=== PATIENT | male | born 1950 | race Caucasian/White ===

== ENCOUNTER 2022-04-01 10:30 | Outpatient (CLI) | payer MEDICARE, OTHER ==
[~2022-04-01 10:30] MED LIST: AMLO-212 PO; ASCO500C6 PO; ASPI-605 PO; ATEN50TA PO; CARI3CAP PO; CLOZ200T PO; DONE5TAB34 PO; FISH OIL OMEGA1 EACH PO; LORA2TAB PO; LOSA25TA3 PO; MEMA5TAB PO; Olanzapine PO; PYRI50TA15 PO; QUET200T PO; TRIH2TAB4 PO
== END 2022-04-01 23:59 | disposition home or self-care (01) ==
LOC: LAB 10:30
PROVIDERS: ATTEND Specialist
DX: Z01.812 Encounter for preprocedural laboratory examination (principal); Z20.822 Contact with and (suspected) exposure to COVID-19
CPT/HCPCS: C9803; U0003

== ENCOUNTER 2022-04-08 07:09 | Inpatient (IN) | payer MEDICARE, OTHER ==
[2022-04-08 07:30] VITALS: BP 124/71
--- NOTE | 2022-04-08 07:30 | NUR ---
RN OPENING NOTE RECEIVED PT FOR RIGHT KNEE ARTHROPLASTY AT 0730 WITH FAMILY. A/0 X3. ABLE TO FOLLOW INSTRUCTIONS AND MAKE NEEDS KNOWN. PRE-OP CONSENT FORMS SIGNED, CHECKLIST COMPLETED, RN ADDRESSED QUESTIONS. IV ACCESS WILL BE PLACED IN OR. PT PICKED UP AT 0905 FOR SURGERY WITH MD ARMAAN.
[2022-04-08] MEDS ORDERED: FENTANYL PF 100MCG/2ML AMPUL ONE ×2 (08:37→13:17)
[2022-04-08] MEDS ORDERED: PROPOFOL 100 ML ONE (08:38)
[2022-04-08] MEDS ORDERED: BUPIVACAINE 0.5 % PF 150 MG/30 ML VIAL ONE (08:56)
[2022-04-08] MEDS ORDERED: POLYMYXIN B SULFATE 500,000 UNITS ONE (08:56)
[2022-04-08] MEDS ORDERED: TRANEXAMIC ACID 3,000 MG in SODIUM CHLORIDE IRRIG SOLUTION 70 ML IR ONE (09:30)
[2022-04-08] MEDS ORDERED: HYDROMORPHONE 1 MG/1 ML DISP.SYRIN IV PRN ×2 (13:30→17:30)
[2022-04-08] MEDS ORDERED: HYDROCODONE/APAP 5/325MG TABLET PO PRN (13:30)
[2022-04-08] MEDS ORDERED: ACETAMINOPHEN 325 MG TABLET PO PRN ×2 (13:30→15:30)
[2022-04-08] MEDS ORDERED: ZOLPIDEM TARTRATE 5 MG TABLET PO PRN ×2 (13:30→15:30)
[2022-04-08] MEDS ORDERED: SENNOSIDES 8.6 MG TABLET PO PRN (13:30)
[2022-04-08] MEDS ORDERED: BISACODYL SUPP (10 MG) 10 MG/SUPP.RECT SUPP.RECT RC PRN (13:30)
[2022-04-08 14:10] VITALS: BP 145/71
[2022-04-08] MEDS: IV LR 1000 ML 1,000 ML IV PRN (15:15)
--- NOTE | 2022-04-08 15:20 | NUR ---
SS Note: SS received consult for discharge planning. Pt. Is a 71-year-old male who presents to the hospital for right knee arthroplasty. Pt. was oriented x3, alert, and cooperative. During interview, pt. was capable of following directions and appeared groomed. Pt.s speech was at a normal rate and pt.s mood was elevated. Pt. reported no hx of mental health, substance abuse, suicidal ideation, or homicidal ideation. Pt. denies auditory hallucinations, visual hallucinations, paranoia, or delusions. SW explored pt.s living situation. Per pt., he lives with his daughter Nila [[id number] [facility] [place] [address], daughter: [phone]], pt. was able to confirm address. Pt. stated that he uses a cane for ambulation. Per case supervisor note, pt.'s daughter is requesting to refer pt. at [facility] for acute rehab. Plan: SW provided available resources and pt. accepted. Per case supervisor note, pt. s daughter is requesting to refer pt. at [facility] for acute rehab upon discharge. Resources Provided: ABUSE PREVENTION: ELDER ABUSE HOTLINE (08/05) ADULT PROTECTIVE SERVICES HOTLINE [facility] Region AREA ON AGING (HOTLINE) ADULT DAY HEALTH CARE CARE CENTERS: Private pay or [facility] funded adult day care [place] [facility] , [facility] Integration Services , [facility] Adult Care Center , [facility] Adult Day Health Care , [facility] Adult Day Health Care , [facility] , [facility] , [facility] Adult [place] , [place] ALZHEIMERS DISEASE/DEMENTIA: Alzheimers Association Helpline [facility] Chapter www.alz.org/[facility] Department of Aging www.lacity.org Family Caregiver Arp www.caregiver.org [place] Caregiver Resources Center/Family Support www.[facility].org CANCER RESOURCES: Italian Cancer Society www.cancer.org Cancer Support Community www.CancerSupportVvsb.org: CancerCare www.cancercare.org [facility] Cancer Support [place] www.[facility].org [facility] HEALTH ASSOCIATIONS: AARP www.aarp.org ALS Association (ask for Mari) www.als.org Italian Diabetes Association www.diabetes.org Italian Heart Association www.heart.org Italian Lung Association www.lungusa.org Italian Parkinson Disease Association www.apdaparkinson.org Italian Siren , www.redcross.org Arthritis Foundation www.arthritis.org Crohns & Colitis Foundation of Italian www.ccfa.org/chapters/di National Multiple Sclerosis Society www.nationalmssociety.org Myasthenia Gravis Foundation www.myasthenia-ca.org National Stroke Association www.stroke.org CONSERVATORSHIP & GUARDIANSHIP: AARP Megan Valerio Legal Services Center for Health Care Rights Eldercare Information and Referral Primer Press Operator Foundation [facility]: [facility] Bar Referral Service [facility] [place] Legal Services Office of the Public Guardian [place] EYESIGHT DISORDER RESOURCES: Italian Macular Degeneration Foundation [facility] www.[facility].org GRIEF AND BEREAVEMENT RESOURCES: The Gathering Place , [facility] THE HOPE Connection , [facility] , [place] HEARING DISORDER RESOURCES: [place] Telephone Access Program Deaf and Disabled Telecommunications Program www.ddtp.[facility].ca.gov HearRx Hearing Centers ([place]) Better Hearing Systems , [place] GLAD ([facility] Agency on Deafness) V/ TTY; Wardrobe Supervisor , [facility] Hearing [place] [facility] -low income hearing aid assistance www.[facility] youngstownringfoundation.org [facility] , [place] HELP AT HOME CAREGIVER SUPPORT: In Home Support Services (Must have Medi-Deshaun to be eligible) *Ask for a list of agencies that provide services to assist with care in the home. Local Senior Centers also have listings of care providers. HOME SAFETY MODIFICATIONS AND EQUIPMENT: Senior centers have additional referrals. [place] Housing and Community Investment Dept. Handyworker Program (low income) or Visit http://hcidla.grace hospitality.org/ubd-xowwyo-yw for more information National Seating and Mobility and/or ; Forever Active www.foreverWhere I've Beenmed.com Stay Home Safe www.Stayhomesafe.com LIFE ALERT RESPONSE SYSTEM: Janeen Lifeline Services 485-518-1990 www. Touchstorm.[employer] Life Alert 988-219-2292 www.lifealert.[employer] Life Station 820-614-7267 www.NeuroSigmaation.[employer] Safe Return 913-324-0037 www.alz.or/safereturn Cell Phones for Seniors www.Fannect MEALS AND FOOD PROGRAMS: [place] Meals on Wheels [phone] [place] Meals on Wheels [phone] [facility] [phone] [place] to the Homebound [phone] [place] to the Homebound [phone] [facility] to the Homebound [phone] [facility] to the Homebound [phone] [facility] [phone] [facility] [phone] ONE Generation [phone] [facility] [phone] [facility] [phone] Meals on Wheels [phone] For all ages: $6.85/ meal w side. Delivered M-F from 10 am-1pm. Application and payment is done over the phone. Frozen meals available for weekends. Emergency Food [facility] [phone] [facility] Building Code Inspector [phone] [facility] [phone] [facility]- Brown bag lunches [phone] [facility] [phone] MEAL/GROCERY DELIVERY PROGRAMS: [facility] Gourmet Meals [phone]- [facility] [phone]- [facility] Magic Kitchen [phone] Moms Meals [phone] (ask Daly for Discount Select grocery stores may provide delivery. MEDICAL INSURANCE SUPPORT SERVICES: Center for Health Care Rights [phone] Health Insurance Counseling/Advocacy Programs (HICAP)-Must have Medicare. Offers counseling for Medi-Deshaun eligibility [phone] Department of Public Building Code Inspector [phone] www.[facility].ca.gov Medicare [phone] www.socialsecurity.org Social Security [phone] SENIOR ACTIVITY PROGRAMS: *Contact a local senior center, adult school, recreation facility or community [facility] for education, fitness, recreation, and social programs. Aquatic Therapy and Adapted Exercise programs through [facility] [phone] Encore at [facility] [phone]/encore U- Senior Friends [phone] [place] Senior Programs [phone] www.oasisnet.org Suddenly 65 www.csnhufgu27.[employer]irement [employer] SENIOR CENTERS: [facility] [phone] [facility] [phone] [facility] [phone] [facility] [phone] [facility] [phone] [facility] [phone] [facility] [phone] [facility] [phone] [facility] [phone] [facility] [phone] [facility] [phone] [facility] [phone] [facility] [phone] TRANSPORTATION: Local [facility] may have applications for transportation programs and additional resources. ACCESS Services [phone] Transportation for seniors and disabled persons 7 days a week requiring 254 hr. advance reservation. Must apply and register for program dane eligible. Smarter Learn Limited RIDE 299-637-2236 or [phone] Transportation for seniors and persons with ADA card/metro disabled card in the [facility]. M-F only. Must register for services. ONE GENERATION [phone] Serves 65 years + in conjunction with city ride program. Must be registered with both programs. A to B Transport [phone] Provides wheelchair/gurney van service. Adult Medical Transport [phone] Accepts [facility] with prior authorization. Care Van [phone] Provides wheelchair Transport. [facility] Wide Transportation [phone] Provides gurney service [facility] [phone] Gurney Transport. All Town Transportation [phone] wheelchair & gurney transport GMD Transportation [phone] wheelchair & gurney transport [place] Non-Emergency Transport [phone] wheelchair & gurney transport [facility] Living [place] [phone] Short Term Transportation primarily for adults with disabilities on social security income. Nominal fee may apply and a reservation is required. [facility] [phone] or [phone] [facility] [phone] [place] [address] Referral Services -[phone] For additional programs & services VETERANS RESOURCES: Submissions for Aid and Attendance should be done directly to Federal VA office locatd at : [address] [address] X110 National Caregiver Support Line [phone] [facility] Field Office [phone] [place] Department of [place] Affairs [phone] Pension Information [phone]
[2022-04-08] MEDS ORDERED: ONDANSETRON HCL/PF 4 MG/2 ML VIAL IVP PRN (15:30)
[2022-04-08] MEDS ORDERED: Z GUARD REMEDY 4 OZ OINT TP PRN (15:30)
[2022-04-08] MEDS ORDERED: MAG HYDROX/AL HYDROX/SIMETH 30 ML UDC PO PRN (15:30)
[2022-04-08] MEDS ORDERED: MAGNESIUM HYDROXIDE 30 ML UDC PO PRN (15:30)
[2022-04-08] MEDS ORDERED: oxyCODONE IR immediate release 5 MG PO ONE (15:55)
[2022-04-08 16:00] VITALS: BP 143/77
[2022-04-08] MEDS ORDERED: MENTHOL/CETYLPYRD (CEPACOL) 1 LOZ LOZENGE PO PRN (16:00)
[2022-04-08] MEDS ORDERED: diphenhydrAMINE HCL 25 MG CAPSULE PO PRN (16:00)
[2022-04-08 16:15] LABS: BASOPHILS % (AUTO) 0.3 % (0.0-2.0); EOSINOPHILS % (AUTO) 0.1 % (0.0-6.0); HEMATOCRIT 37 % (39-51); HEMOGLOBIN 11.8 g/dL (13.5-17.5); LYMPHOCYTES # (AUTO) 1.4 K/uL (0.8-4.8); LYMPHOCYTES % (AUTO) 10.8 % (20.0-44.0); MEAN CORPUSCULAR HGB CONC 32 g/dl (31.0-36.0); MEAN CORPUSCULAR VOLUME 87 fL (80-96); MONOCYTES # (AUTO) 0.6 K/uL (0.1-1.30); MONOCYTES % (AUTO) 4.9 % (2.0-12.0); NEUTROPHILS % (AUTO) 83.9 % (43.0-81.0); PLATELET COUNT (AUTO) 227 K/uL (150-450); RED BLOOD CELL COUNT(AUTO) 4.27 MIL/uL (4.5-6.0); WHITE BLOOD COUNT (AUTO) 13.1 K/uL (4.3-11.0)
[2022-04-08 16:30] LABS: ALBUMIN 3.2 g/dL (3.4-5.0); BILIRUBIN,TOTAL 0.4 mg/dL (0.2-1.0); CREATININE 0.9 mg/dL (0.6-1.3); TOTAL PROTEIN, SERUM 7.3 g/dL (6.4-8.2)
[2022-04-08] MEDS ORDERED: DOCUSATE SODIUM 250 MG CAPSULE PO PRN (17:00)
[2022-04-08] MEDS: ASPIRIN EC 325 MG TABLET.DR PO SCH (17:01)
[2022-04-08] MEDS: DOCUSATE SODIUM 100 MG CAPSULE PO SCH (17:03)
[2022-04-08] MEDS ORDERED: CLOZAPINE PO SCH (17:30)
[2022-04-08] MEDS: PYRIDOXINE HCL 50 MG TABLET PO SCH (17:55)
--- NOTE | 2022-04-08 18:29 | NUR ---
RN OPENING NOTE RECEIVED PT FOR RIGHT KNEE ARTHROPLASTY AT 0730 WITH FAMILY. A/0 X3. ABLE TO FOLLOW INSTRUCTIONS AND MAKE NEEDS KNOWN. PRE-OP CONSENT FORMS SIGNED, CHECKLIST COMPLETED, RN ADDRESSED QUESTIONS. PT CAME BACK FROM SURGERY @ 1410, IV ACCESS @ LEFT HAND #22 RUNNING NS@ 100ML/HR. PT IS SLEEPING BUT IS EASILY ROUSED. PRN PAIN MEDICATION GIVEN, PAIN TOLERABLE AT THIS TIME. PT IS ABLE TO VERBALIZE NEEDS. DENIES SOB/DISTRESS, WILL ENDORSE TO PM SHIFT
--- NOTE | 2022-04-08 19:25 | NUR ---
RN NOTE RECEIVED PT AWAKE IN BED, A/OX3, ABLE TO MAKE NEEDS KNOWN. RESPIRATIONS EVEN/UNLABORED, ON ROOM AIR. PT DENIES ANY PAIN AT THIS TIME. IV ACCESS ON L-HAND #22G INTACT/PATENT, INFUSING LR @100ML/HR. WITH F/C IN PLACE, DRAINING CLEAR YELLOW URINE. PT IN NO ACUTE DISTRESS. SAFETY MEASURES IN PLACE, BED IN LOWEST LOCKED POSITION, S/R UPX2, CALL LIGHT WITHIN REACH. WILL CONT TO MONITOR.
[2022-04-08] MEDS: ANCEF 1 GM/50 ML D5W IV SCH ×2 (19:57)
[2022-04-08 20:11] VITALS: BP 137/80
[2022-04-08] MEDS: DONEPEZIL 5 MG TABLET PO SCH (21:31)
[2022-04-08] MEDS: CLOZAPINE 100 MG TABLET PO SCH (22:00)
[2022-04-09] MEDS: IV LR 1000 ML 1,000 ML IV PRN (02:32)
[2022-04-09] MEDS: oxyCODONE IR immediate release 5 MG PO PRN ×2 (02:35→22:12)
[2022-04-09] MEDS: ANCEF 1 GM/50 ML D5W IV SCH ×2 (03:42)
[2022-04-09 06:29] LABS: BASOPHILS % (AUTO) 0.3 % (0.0-2.0); EOSINOPHILS % (AUTO) 0.1 % (0.0-6.0); HEMATOCRIT 35 % (39-51); HEMOGLOBIN 11.5 g/dL (13.5-17.5); LYMPHOCYTES # (AUTO) 1.4 K/uL (0.8-4.8); LYMPHOCYTES % (AUTO) 13.4 % (20.0-44.0); MEAN CORPUSCULAR HGB CONC 33 g/dl (31.0-36.0); MEAN CORPUSCULAR VOLUME 86 fL (80-96); MONOCYTES % (AUTO) 10.1 % (2.0-12.0); NEUTROPHILS # (AUTO) 7.8 K/uL (1.8-8.9); NEUTROPHILS % (AUTO) 76.1 % (43.0-81.0); PLATELET COUNT (AUTO) 213 K/uL (150-450); RED BLOOD CELL COUNT(AUTO) 4.08 MIL/uL (4.5-6.0); WHITE BLOOD COUNT (AUTO) 10.3 K/uL (4.3-11.0)
[2022-04-09 06:43] LABS: CALCIUM, SERUM 8.1 mg/dL (8.5-10.1); PHOSPHORUS 3.9 mg/dL (2.5-4.9); POTASSIUM 3.6 mmol/L (3.5-5.1)
--- NOTE | 2022-04-09 07:10 | NUR ---
RN NOTE PT RESTING IN BED, EASILY AROUSABLE TO STIMULI. ABLE TO MAKE NEEDS KNOWN. PAIN WELL MANAGED WITH PRN PAIN MEDS. S/P R-TKA WITH DRESSING C/D/I AND IMMOBILIZER IN PLACE. ONGOING IVF LR @100ML/HR. F/C DRAINING CLEAR YELLOW URINE, OUTPUT 2000 THIS SHIFT. KEPT PT CLEAN/DRY AND POSITIONED FOR COMFORT. ALL NEEDS ATTENDED TO. SAFETY MEASURES MAINTAINED.
[2022-04-09] MEDS ORDERED: OLAN10TA3 PO (07:52)
[2022-04-09] MEDS ORDERED: BENZ0.5T43 PO (07:52)
[2022-04-09] MEDS ORDERED: BREX3TAB PO (07:52)
[2022-04-09] MEDS ORDERED: TRIHEXYPHENIDYL HCL 2 MG TABLET PO SCH (09:00)
[2022-04-09] MEDS ORDERED: CLOZAPINE 100 MG PO SCH (09:00)
[2022-04-09] MEDS ORDERED: MEMANTINE HCL 5 MG TABLET PO SCH ×2 (09:00→12:35)
[2022-04-09] MEDS ORDERED: QUETIAPINE FUMARATE 100 MG TABLET PO SCH (09:00)
[2022-04-09] MEDS ORDERED: LORAZEPAM 0.5 MG TABLET PO PRN (09:00)
[2022-04-09] MEDS ORDERED: ASPIRIN EC 81 MG TABLET.DR PO SCH (09:00)
[2022-04-09] MEDS ORDERED: ATENOLOL 50 MG TABLET PO SCH (09:00)
[2022-04-09] MEDS ORDERED: AMLODIPINE BESYLATE 5 MG TABLET PO SCH (09:00)
[2022-04-09] MEDS ORDERED: LOSARTAN POTASSIUM 25 MG TABLET PO SCH (09:00)
[2022-04-09] MEDS: ASPIRIN EC 325 MG TABLET.DR PO SCH ×2 (09:32→18:00)
[2022-04-09] MEDS: OLANZAPINE 5 MG TABLET PO SCH ×2 (09:32→12:24)
[2022-04-09] MEDS: PYRIDOXINE HCL 50 MG TABLET PO SCH (09:33)
[2022-04-09] MEDS: PANTOPRAZOLE 40 MG TABLET.DR PO SCH (09:33)
[2022-04-09] MEDS: DOCUSATE SODIUM 100 MG CAPSULE PO SCH ×2 (09:34→18:00)
[2022-04-09] MEDS: CLOZAPINE 100 MG TABLET PO SCH ×2 (12:18→22:04)
[2022-04-09] MEDS: REXULTI 4 MG PO SCH (12:51)
[2022-04-09] MEDS ORDERED: LORAZEPAM 0.5 MG TABLET PO SCH (13:02)
--- NOTE | 2022-04-09 16:00 | NUR ---
RN NOTES PATIENT SELF REMOVED INDWELLING OCONNOR CATHETER. NO BLEEDING NOTED AT ENTRANCE SITE. NO COMPLAINT OF PAIN AT THIS TIME. WILL CONTINUE TO MONITOR
--- NOTE | 2022-04-09 19:00 | NUR ---
RN NOTES PATIENT RESTING IN BED, INTERMITTENTLY DOZING. A/O X2. ON RA TOLERATING WELL WITH NO SOB OR RESP DISTRESS NOTED. NO COMPLAINT OF PAIN AT THIS TIME. SAFETY PRECAUTIONS IN PLACE. WILL CONTINUE TO MONITOR.
[2022-04-09 20:00] VITALS: BP 109/56
[2022-04-09] MEDS: DONEPEZIL 5 MG TABLET PO SCH (22:04)
[2022-04-10] MEDS: IV LR 1000 ML 1,000 ML IV PRN (05:40)
[2022-04-10] MEDS: LORAZEPAM 0.5 MG TABLET PO SCH ×2 (06:02→12:32)
[2022-04-10 06:25] LABS: BASOPHILS % (AUTO) 0.3 % (0.0-2.0); EOSINOPHILS % (AUTO) 0.2 % (0.0-6.0); HEMATOCRIT 33 % (39-51); HEMOGLOBIN 10.7 g/dL (13.5-17.5); LYMPHOCYTES # (AUTO) 1.4 K/uL (0.8-4.8); LYMPHOCYTES % (AUTO) 14.2 % (20.0-44.0); MEAN CORPUSCULAR HGB CONC 33 g/dl (31.0-36.0); MEAN CORPUSCULAR VOLUME 86 fL (80-96); MONOCYTES % (AUTO) 9.9 % (2.0-12.0); NEUTROPHILS # (AUTO) 7.3 K/uL (1.8-8.9); NEUTROPHILS % (AUTO) 75.4 % (43.0-81.0); PLATELET COUNT (AUTO) 208 K/uL (150-450); WHITE BLOOD COUNT (AUTO) 9.7 K/uL (4.3-11.0)
--- NOTE | 2022-04-10 07:00 | NUR ---
RN NOTES PATIENT RESTING IN BED. NO COMPLAINTS AT THIS TIME. PATIENT SLEPT MOST OF THE NIGHT AND ALL MEDS WERE TAKEN. WILL ENDORSE TO THE DISTRICT FIRE MANAGEMENT OFFICER NURSE FOR DI Addendum: 04/10/22 at 0731 by LORA HERNANDEZ RN DAY SHIFT NURSE NOT NIGHT
[2022-04-10 07:21] LABS: CALCIUM, SERUM 8.2 mg/dL (8.5-10.1); MAGNESIUM 2.1 mg/dL (1.8-2.4); PHOSPHORUS 3.4 mg/dL (2.5-4.9); POTASSIUM 3.5 mmol/L (3.5-5.1)
--- NOTE | 2022-04-10 07:30 | NUR ---
MS RN OPENING NOTES RECEIVED PT FOR RIGHT KNEE ARTHROPLASTY, A/0 X3. IV ACCESS @ LEFT HAND #22G, INTACT AND PATENT. PT IS SLEEPING BUT IS EASILY ROUSED, NO S/S OF SOB, DISTRESS, AND DISCOMFORT. PATIENT IS IN ROOM AIR AND TOLERATED WELL. 0/10 OF PAIN AT THIS MOMENT. SAFETY MEASURES INITIATED. WILL CONTINUE TO MONITOR FOR DI.
[2022-04-10] MEDS: CLOZAPINE 100 MG TABLET PO SCH ×3 (08:09→22:02)
[2022-04-10] MEDS: PYRIDOXINE HCL 50 MG TABLET PO SCH (08:09)
[2022-04-10] MEDS: PANTOPRAZOLE 40 MG TABLET.DR PO SCH (08:09)
[2022-04-10] MEDS: ATENOLOL 50 MG TABLET PO SCH (08:10)
[2022-04-10] MEDS: ASPIRIN EC 325 MG TABLET.DR PO SCH ×2 (08:10→18:00)
[2022-04-10] MEDS: DOCUSATE SODIUM 100 MG CAPSULE PO SCH ×2 (09:30→18:01)
[2022-04-10] MEDS: REXULTI 4 MG PO SCH (12:32)
[2022-04-10] MEDS: MEMANTINE HCL 5 MG TABLET PO SCH (18:00)
--- NOTE | 2022-04-10 19:26 | NUR ---
RN OPENING NOTE PATIENT ON RA, TOLERATING WELL. PATIENT'S DAUGHTER AT BEDSIDE. PATIENT IS ON RA, TOLERATING WELL. PATIENT IS MILDLY CONFUSED A/O X 1-2 A THIS TIME. L HAND IV ACCESS NOTED TO HAVE BEEN PULLED OUT BY PATIENT, PATIENT ALSO DECLOTHING. R LOWER EXT SANDRA WRAPPED, C/D/I. WHEN ASKED IF PATIENT HAS PAIN, PATIENT SAYS "NO" AND " I DON'T KNOW". SAFETY MEASURES IN PLACE: BED LOCKED AND IN LOWEST POSITION, CALL LIGHT WITHIN REACH, SIDE RAILS UP. WILL MONITOR PATIENT CLOSELY.
--- NOTE | 2022-04-10 19:30 | NUR ---
MS RN CLOSING NOTES PT FOR RIGHT KNEE ARTHROPLASTY, A/0 X3. IV ACCESS @ LEFT HAND #22G PULLED BY THE PATIENT. PT HAS NO S/S OF SOB, DISTRESS, AND DISCOMFORT. PATIENT IS IN ROOM AIR AND TOLERATED WELL. 0/10 OF PAIN AT THIS MOMENT. SAFETY MEASURES INITIATED. WILL ENDORSE TO INCOMING SHIFT FOR DI.
[2022-04-10 20:00] VITALS: BP 123/68
[2022-04-10] MEDS: DONEPEZIL 5 MG TABLET PO SCH (22:02)
--- NOTE | 2022-04-10 22:30 | NUR ---
RN NOTE SPOKE WITH DR IRVIN, OTHER HOME MEDS (BENZTROPINE 0.5 MG BID, ZYPREXA, AND REXULTI) TO BE CONTINUED BUT TO BE FOLLOWED UP WITH MORNING MD.
[2022-04-11] MEDS: LORAZEPAM 0.5 MG TABLET PO SCH ×2 (06:05→12:21)
[2022-04-11 06:51] LABS: CALCIUM, SERUM 8.6 mg/dL (8.5-10.1); MAGNESIUM 2.3 mg/dL (1.8-2.4); PHOSPHORUS 2.4 mg/dL (2.5-4.9); POTASSIUM 3.2 mmol/L (3.5-5.1)
--- NOTE | 2022-04-11 06:58 | NUR ---
RN CLOSING NOTE PATIENT ON RA, TOLERATING WELL. PATIENT IS ON RA, TOLERATING WELL. PATIENT IS A/O X 2 WITH PERIODS OF CONFUSION. RFA 22 G PATENT AND INTACT WRAPPED IN KERLIX TO PREVENT PULLING OUT. R LOWER EXT SANDRA WRAPPED, C/D/I. NO PAIN AT THIS TIME. PATIENT TOLERATES MOVING R EXT. SAFETY MEASURES IN PLACE: BED LOCKED AND IN LOWEST POSITION, CALL LIGHT WITHIN REACH, SIDE RAILS UP. ALL NEEDS MET AND ATTENDED. ALL ORDERS CARRIED OUT. WILL ENDORSE TO DAY SHIFT NURSE FOR DI.
[2022-04-11 06:59] LABS: BASOPHILS % (AUTO) 0.3 % (0.0-2.0); EOSINOPHILS % (AUTO) 0.2 % (0.0-6.0); HEMATOCRIT 31 % (39-51); LYMPHOCYTES # (AUTO) 0.9 K/uL (0.8-4.8); LYMPHOCYTES % (AUTO) 9.4 % (20.0-44.0); MEAN CORPUSCULAR HGB CONC 33 g/dl (31.0-36.0); MEAN CORPUSCULAR VOLUME 86 fL (80-96); MONOCYTES # (AUTO) 0.7 K/uL (0.1-1.30); MONOCYTES % (AUTO) 7.9 % (2.0-12.0); NEUTROPHILS # (AUTO) 7.6 K/uL (1.8-8.9); NEUTROPHILS % (AUTO) 82.2 % (43.0-81.0); PLATELET COUNT (AUTO) 216 K/uL (150-450); RED BLOOD CELL COUNT(AUTO) 3.55 MIL/uL (4.5-6.0); WHITE BLOOD COUNT (AUTO) 9.3 K/uL (4.3-11.0)
--- NOTE | 2022-04-11 07:30 | NUR ---
MS RN OPENING NOTES RECEIVED PT FOR RIGHT KNEE ARTHROPLASTY, A/0 X3. IV ACCESS @ R FA #22Y, INTACT AND PATENT. PT IS SLEEPING BUT IS EASILY ROUSED, NO S/S OF SOB, DISTRESS, AND DISCOMFORT. PATIENT IS IN ROOM AIR AND TOLERATED WELL. 0/10 OF PAIN AT THIS MOMENT. SAFETY MEASURES INITIATED. WILL CONTINUE TO MONITOR FOR DI.
[2022-04-11] MEDS: DOCUSATE SODIUM 100 MG CAPSULE PO SCH ×2 (09:38→16:43)
[2022-04-11] MEDS: PANTOPRAZOLE 40 MG TABLET.DR PO SCH (09:38)
[2022-04-11] MEDS: ATENOLOL 50 MG TABLET PO SCH (09:38)
[2022-04-11] MEDS: PYRIDOXINE HCL 50 MG TABLET PO SCH (09:38)
[2022-04-11] MEDS: ASPIRIN EC 325 MG TABLET.DR PO SCH ×2 (09:38→16:42)
[2022-04-11] MEDS: CLOZAPINE 100 MG TABLET PO SCH ×3 (09:38→21:27)
[2022-04-11] MEDS ORDERED: K PHOS NEUTRAL 250 MG TABLET PO ONE (12:00)
[2022-04-11] MEDS: REXULTI 4 MG PO SCH (12:21)
[2022-04-11] MEDS ORDERED: ASPI-1100 PO (15:42)
[2022-04-11] MEDS: MEMANTINE HCL 5 MG TABLET PO SCH (16:42)
--- NOTE | 2022-04-11 19:59 | NUR ---
RN OPENING NOTE PATIENT ON RA, TOLERATING WELL. PATIENT IS ON RA, TOLERATING WELL. PATIENT IS A/O X 1 WITH CONFUSION. RFA 22 G PATENT AND INTACT WRAPPED IN KERLIX TO PREVENT PULLING OUT. R LOWER EXT SANDRA WRAPPED, C/D/I. NO PAIN AT THIS TIME. PATIENT TOLERATES MOVING R EXT. SAFETY MEASURES IN PLACE: BED LOCKED AND IN LOWEST POSITION, CALL LIGHT WITHIN REACH, SIDE RAILS UP. ALL NEEDS MET AND ATTENDED. BED ALARM ON AT THIS TIME. WILL CONTINUE TO MONITOR.
[2022-04-11 20:00] VITALS: BP 102/59
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
[2022-04-11] MEDS: BENZTROPINE MESYLATE (1 MG) 1 MG TABLET PO SCH (20:38)
[2022-04-11] MEDS: oxyCODONE IR immediate release 5 MG PO PRN (23:12)
--- NOTE | 2022-04-11 23:23 | NUR ---
MS RN NOTES PT REQUESTED PAIN MEDICATION FOR PAIN 3/10 ON A NUMERIC PAIN SCALE PRN OXY 5MG IR GIVEN AND TOLERATED WELL. WILL CONTINUE TO MONITOR.
--- NOTE | 2022-04-11 23:32 | NUR ---
MS RN NOTES PT KEEPS TRYING TO GET UP WITHOUT ASSISTANCE. PER DAY SHIFT NURSE PT IS S/P FOUND ON THE GROUND DURING DAY SHIFT. ALL NEEDS MET TRENT MONITORING ATTEMPTED BUT PT KEEPS DISREGARDING SAFETY MEASURES. NEW ORDER FOR BILATERAL SOFT WRIST RESTRAINTS CARRIED OUT.
[2022-04-12] MEDS: LORAZEPAM 0.5 MG TABLET PO SCH ×2 (06:02→11:59)
--- NOTE | 2022-04-12 06:51 | NUR ---
MS RN CLOSING NOTES PT A/0 X1 IV ACCESS @ RFA #20G, INTACT AND PATENT. PT IS SLEEPING BUT IS EASILY ROUSED, NO S/S OF SOB, DISTRESS, AND DISCOMFORT. PATIENT IS IN ROOM AIR AND TOLERATED WELL. 0/10 OF PAIN AT THIS MOMENT. PT WITH BILATERAL SOFT WRIST RESTRAINTS DUE TO PTS DISREGARD FOR SAFETY DESPITE COUNTESS REMINDERS AND ALL NEEDS BEING MET AND RESTRAINTS REMOVED EVERY 2 HRS CIRCULATION CHECKED AND RANGE OF MOTION EXERCISES DONE. CONFUSION.PAIN MANAGEMENT WAS PROVIDED NEEDED. SAFETY MEASURES INITIATED. WILL ENDORSE TO INCOMING SHIFT FOR DI.
[2022-04-12 07:20] LABS: CALCIUM, SERUM 8.3 mg/dL (8.5-10.1); CARBON DIOXIDE 29 mmol/L (21-32); CHLORIDE 105 mmol/L (98-107); CREATININE 0.9 mg/dL (0.6-1.3); GLUCOSE 134 mg/dL (74-106); POTASSIUM 3.3 mmol/L (3.5-5.1); SODIUM SERUM 141 mmol/L (136-145); UREA NITROGEN, BLOOD 16 mg/dL (7-18)
--- NOTE | 2022-04-12 07:30 | NUR ---
MS RN OPENING NOTES RECEIVED PT FOR RIGHT KNEE ARTHROPLASTY, A/0 X3. IV ACCESS @ R FA #22K, INTACT AND PATENT. PT IS SLEEPING BUT IS EASILY ROUSED, NO S/S OF SOB, DISTRESS, AND DISCOMFORT. PATIENT IS IN ROOM AIR AND TOLERATED WELL. 0/10 OF PAIN AT THIS MOMENT. SAFETY MEASURES INITIATED. WILL CONTINUE TO MONITOR FOR DI.
[2022-04-12 08:00] VITALS: BP 126/76
[2022-04-12] MEDS: PANTOPRAZOLE 40 MG TABLET.DR PO SCH (08:31)
[2022-04-12] MEDS: ATENOLOL 50 MG TABLET PO SCH (08:31)
[2022-04-12] MEDS: DOCUSATE SODIUM 100 MG CAPSULE PO SCH ×2 (08:31→16:48)
[2022-04-12] MEDS: PYRIDOXINE HCL 50 MG TABLET PO SCH (08:32)
[2022-04-12] MEDS: BENZTROPINE MESYLATE (1 MG) 1 MG TABLET PO SCH ×2 (08:32→16:49)
[2022-04-12] MEDS: CLOZAPINE 100 MG TABLET PO SCH ×3 (08:32→21:37)
[2022-04-12] MEDS: ASPIRIN EC 325 MG TABLET.DR PO SCH ×2 (08:32→16:48)
[2022-04-12] MEDS ORDERED: POTASSIUM CHLORIDE 20 MEQ TAB.PRT.SR PO SCH (11:30)
[2022-04-12] MEDS: REXULTI 4 MG PO SCH (12:01)
[2022-04-12 16:00] VITALS: BP 129/68
[2022-04-12] MEDS ORDERED: K PHOS NEUTRAL 250 MG TABLET PO ONE (16:00)
[2022-04-12] MEDS: MEMANTINE HCL 5 MG TABLET PO SCH (16:49)
--- NOTE | 2022-04-12 18:16 | NUR ---
MS RN CLOSING NOTES PT IS LYING COMFORTABLY IN BED, A/O X1. IV ACCESS @ LFA #18G, INTACT AND PATENT. NO S/S OF SOB, DISTRESS, AND DISCOMFORT. 0/10 OF PAIN AT THIS MOMENT.PATIENT IS IN ROOM AIR AND TOLERATED WELL. PT WITH BILATERAL SOFT WRIST RESTRAINTS DUE TO MOMENTS OF CONFUSION AND DELUSION, AND RESTRAINTS REMOVED EVERY 2 HRS CIRCULATION CHECKED AND RANGE OF MOTION EXERCISES DONE. PATIENT [facility]PO[facility] TO [facility]. ALL NEEDS BEING MET. PAIN MANAGEMENT WAS PROVIDED NEEDED. SAFETY MEASURES INITIATED. WILL ENDORSE TO INCOMING SHIFT FOR DI.
--- NOTE | 2022-04-12 19:45 | NUR ---
MS RN OPENING NOTES PT IS LYING COMFORTABLY IN BED, A/O X1. IV ACCESS @ LFA #18G, INTACT AND PATENT. NO S/S OF SOB, DISTRESS, AND DISCOMFORT. 0/10 OF PAIN AT THIS MOMENT.PATIENT IS IN ROOM AIR AND TOLERATED WELL. PT WITH BILATERAL SOFT WRIST RESTRAINTS DUE TO MOMENTS OF CONFUSION AND DELUSION, AND RESTRAINTS REMOVED EVERY 2 HRS CIRCULATION CHECKED AND RANGE OF MOTION EXERCISES DONE. ALL NEEDS BEING MET AT THIS TIME. PAIN MANAGEMENT WAS PROVIDED NEEDED. SAFETY MEASURES INITIATED. FAMILY WOULD LIKE TO SPEAK TO PRIMARY CARE PROVIDER TOMORROW REGARDING POSSIBLE NEURO CONSULT.
[2022-04-12 20:00] VITALS: BP 110/68
--- NOTE | 2022-04-13 01:18 | NUR ---
MS RN NOTES RECEIVED ORDER FOR ENEMA FOR PTS LACK OF BM X4 DAYS WILL CARRY OUT AND ADMINISTER ENEMA ORDERED.
[2022-04-13] MEDS ORDERED: MINERAL OIL 133 ML (PYXIS) 1 EA ENEMA RC ONE (01:30)
--- NOTE | 2022-04-13 05:42 | NUR ---
MS RN NOTES PT LOWER DENTURE REMOVED PLACED IN DENTURE CUP WITH PT LABEL ON THE LID PT IS ASLEEP AND DON'T WANT TO RISK ASPIRATION. PT ASLEEP AT THIS TIME IN NO DISTRESS.WILL CONTINUE TO MONITOR.
[2022-04-13 06:29] LABS: BASOPHILS % (AUTO) 0.6 % (0.0-2.0); EOSINOPHILS % (AUTO) 0.5 % (0.0-6.0); HEMATOCRIT 28 % (39-51); HEMOGLOBIN 9.2 g/dL (13.5-17.5); LYMPHOCYTES # (AUTO) 1.1 K/uL (0.8-4.8); LYMPHOCYTES % (AUTO) 14.4 % (20.0-44.0); MEAN CORPUSCULAR HGB CONC 33 g/dl (31.0-36.0); MEAN CORPUSCULAR VOLUME 86 fL (80-96); MONOCYTES # (AUTO) 0.8 K/uL (0.1-1.30); MONOCYTES % (AUTO) 10.9 % (2.0-12.0); NEUTROPHILS # (AUTO) 5.4 K/uL (1.8-8.9); NEUTROPHILS % (AUTO) 73.6 % (43.0-81.0); PLATELET COUNT (AUTO) 258 K/uL (150-450); RED BLOOD CELL COUNT(AUTO) 3.27 MIL/uL (4.5-6.0); WHITE BLOOD COUNT (AUTO) 7.4 K/uL (4.3-11.0)
--- NOTE | 2022-04-13 06:45 | NUR ---
MS RN CLOSING NOTES PT IS LYING COMFORTABLY IN BED, ASLEEP AT THIS TIME. IV ACCESS @ LFA #18G, INTACT AND PATENT. NO S/S OF SOB, DISTRESS, AND DISCOMFORT. 0/10 OF PAIN AT THIS MOMENT.PATIENT IS IN ROOM AIR AND TOLERATED WELL. PT WITH BILATERAL SOFT WRIST RESTRAINTS DUE TO INCREASED CONFUSION AND DELUSION, RESTRAINTS REMOVED EVERY 2 HRS CIRCULATION CHECKED AND RANGE OF MOTION EXERCISES DONE. ALL NEEDS BEING MET AT THIS TIME. .SAFETY MEASURES INITIATED. FAMILY WOULD LIKE TO SPEAK TO PRIMARY CARE PROVIDER TODAY REGARDING POSSIBLE NEURO CONSULT FAMILY CONCERNED WITH PTS INCREASED CONFUSION WILL ENDORSE TO DAY SHIFT NURSE DI
[2022-04-13] MEDS: LORAZEPAM 0.5 MG TABLET PO SCH ×3 (07:00→12:00)
--- NOTE | 2022-04-13 07:15 | NUR ---
RN OPENING NOTES RECEIVED PATIENT SLEEPING COMFORTABLY IN BED, NO SIGNS OF ACUTE DISTRESS NOTED. STABLE ON ROOM AIR, BREATHING EVEN AND UNLABORED. WITH LEFT FORE ARM #20G PERIPHERAL LINE, INTACT AND PATENT, SALINE LOCKED. WITH DESMOND SOFT WRIST RESTRAINTS IN PLACE. SAFETY MEASURE MAINTAINED. BED IN LOWEST AND LOCKED POSITION, SIDERAILS UP X2, CALL LIGHT PLACED WITHIN EASY REACH. WILL CONTINUE TO MONITOR PATIENT.
[2022-04-13 07:42] LABS: CARBON DIOXIDE 29 mmol/L (21-32); CHLORIDE 107 mmol/L (98-107); CREATININE 0.7 mg/dL (0.6-1.3); GLUCOSE 111 mg/dL (74-106); PHOSPHORUS 2.9 mg/dL (2.5-4.9); POTASSIUM 3.4 mmol/L (3.5-5.1); SODIUM SERUM 143 mmol/L (136-145); UREA NITROGEN, BLOOD 13 mg/dL (7-18)
[2022-04-13 08:00] VITALS: BP 97/54
[2022-04-13] MEDS: DOCUSATE SODIUM 100 MG CAPSULE PO SCH ×2 (08:39→16:36)
[2022-04-13] MEDS: BENZTROPINE MESYLATE (1 MG) 1 MG TABLET PO SCH ×2 (08:39→16:35)
[2022-04-13] MEDS: PYRIDOXINE HCL 50 MG TABLET PO SCH (08:39)
[2022-04-13] MEDS: PANTOPRAZOLE 40 MG TABLET.DR PO SCH (08:39)
[2022-04-13] MEDS: ASPIRIN EC 325 MG TABLET.DR PO SCH ×2 (08:39→16:35)
[2022-04-13] MEDS: CLOZAPINE 100 MG TABLET PO SCH ×3 (08:39→21:50)
[2022-04-13] MEDS: ATENOLOL 50 MG TABLET PO SCH (08:40)
[2022-04-13] MEDS ORDERED: POTASSIUM CHLORIDE 20 MEQ TAB.PRT.SR PO SCH (10:00)
[2022-04-13] MEDS: REXULTI 4 MG PO SCH (11:52)
--- NOTE | 2022-04-13 12:10 | NUR ---
RN NOTE PATIENT UP WITH PT, ABLE TO AMBULATE WITH FWW. PATIENT ALSO HAD A LARGE BOWEL MOVEMENT IN THE TOILET WITH PT.
[2022-04-13] MEDS: MEMANTINE HCL 5 MG TABLET PO SCH (16:35)
[2022-04-13] MEDS: oxyCODONE IR immediate release 5 MG PO PRN (17:25)
--- NOTE | 2022-04-13 18:43 | NUR ---
RN CLOSING NOTES PATIENT SLEEPING COMFORTABLY IN BED. NO SIGNS OF ACUTE DISTRESS NOTED. REMAINS STABLE ON ROOM AIR, BREATHING EVEN AND UNLABORED. LEFT FOREARM IV ACCESS #20G, INTACT AND PATENT, SALINE LOCKED. SAFETY MEASURE IN PLACE. BILATERAL SOFT WRIST RESTRAINTS RELEASED, SINE PATIENT SLEEPING AND NO EPISODES OF REMOVING LINES OR GETTING OOB. BED IN LOWEST AND LOCKED POSITION, SIDE RAILS UP. CALL LIGHT PLACED WITHIN EASY REACH. WILL ENDORSE TO NEXT SHIFT FOR DI.
--- NOTE | 2022-04-13 19:30 | NUR ---
MS RN OPENING NOTE RECEIVED PT SLEEPING COMFORTABLY IN BED. A/O X1-2. PT STABLE ON ROOM AIR. NO SOB OR S/S OF RESPIRATORY DISTRESS NOTED. BREATHING EVEN AND UNLABORED. IV ACCESS LFA #20G, INTACT AND PATENT, SALINE LOCKED. SAFETY PRECAUTIONS IN PLACE. BED IN LOWEST LOCKED POSITION, HOB ELEVATED, SIDE RAILS UP X3, AND CALL LIGHT AND TABLE WITHIN REACH. ALL NEEDS MET AT THIS TIME.
[2022-04-13 20:00] VITALS: BP 102/57
--- NOTE | 2022-04-13 21:37 | NUR ---
RN NOTE HELD CLOZARIL 400 MG AT THIS TIME. PT REFUSED MEDICATION ADMINISTRATION. EXPLAINED RISKS AND BENEFITS. PT STILL REFUSED.
[2022-04-14] MEDS: oxyCODONE IR immediate release 5 MG PO PRN ×2 (00:56→16:50)
--- NOTE | 2022-04-14 00:56 | NUR ---
RN NOTE PT COMPLAINED OF PAIN 7/10 OF RIGHT KNEE. ADMINISTERED OXY IR 10 MG FOR MODERATE PAIN ORDERED. MADE COMFORTABLE IN BED. ALL NEEDS MET AT THIS TIME.
--- NOTE | 2022-04-14 06:40 | NUR ---
MS RN CLOSING NOTE PT SLEEPING COMFORTABLY IN BED. A/O X1-2. PT STABLE ON ROOM AIR. NO SOB OR S/S OF RESPIRATORY DISTRESS NOTED. BREATHING EVEN AND UNLABORED. IV ACCESS LFA #20G, INTACT AND PATENT, SALINE LOCKED. SAFETY PRECAUTIONS IN PLACE AT ALL TIMES. BED IN LOWEST LOCKED POSITION, HOB ELEVATED, SIDE RAILS UP X3, AND CALL LIGHT AND TABLE WITHIN REACH. ALL NEEDS MET AT THIS TIME AND WILL ENDORSE TO ONCOMING NURSE FOR DI.
[2022-04-14 06:56] LABS: CALCIUM, SERUM 8.3 mg/dL (8.5-10.1); CREATININE 0.7 mg/dL (0.6-1.3); POTASSIUM 3.5 mmol/L (3.5-5.1)
[2022-04-14] MEDS: LORAZEPAM 0.5 MG TABLET PO SCH ×2 (07:20→12:07)
[2022-04-14] MEDS: PANTOPRAZOLE 40 MG TABLET.DR PO SCH (07:21)
--- NOTE | 2022-04-14 07:30 | NUR ---
MS RN OPENING NOTE RECEIVED PATIENT AWAKE COMFORTABLY IN BED. A/O X1-2. PATIENT IS STABLE ON ROOM AIR. NO SOB OR S/S OF RESPIRATORY DISTRESS NOTED. BREATHING EVEN AND UNLABORED. NO PAIN NOTED. IV ACCESS LFA #20G, INTACT AND PATENT, SALINE LOCKED. DR Michael IRVIN VISITED THE PATIENT.ALL SAFETY PRECAUTIONS IN PLACE. BED IN LOWEST LOCKED POSITION, HOB ELEVATED, SIDE RAILS UP X3, AND CALL LIGHT AND TABLE WITHIN REACH. WILL CONTINUE TO MONITOR.
[2022-04-14] MEDS: PYRIDOXINE HCL 50 MG TABLET PO SCH (08:35)
[2022-04-14] MEDS: ASPIRIN EC 325 MG TABLET.DR PO SCH ×2 (08:35→16:02)
[2022-04-14] MEDS: CLOZAPINE 100 MG TABLET PO SCH ×2 (08:35→12:07)
[2022-04-14] MEDS: BENZTROPINE MESYLATE (1 MG) 1 MG TABLET PO SCH ×2 (08:35→16:02)
[2022-04-14] MEDS: DOCUSATE SODIUM 100 MG CAPSULE PO SCH ×2 (08:35→16:02)
[2022-04-14 08:36] VITALS: BP 123/68
[2022-04-14] MEDS: ATENOLOL 50 MG TABLET PO SCH (08:36)
[2022-04-14] MEDS: REXULTI 4 MG PO SCH (12:07)
[2022-04-14] MEDS ORDERED: LORAZEPAM 0.5 MG TABLET PO PRN (13:00)
--- NOTE | 2022-04-14 14:15 | NUR ---
RN NOTES CALLED JENNIFER AT [facility] AND GAVE REPORT FOR THE PATIENT AT 1415 PM.
[2022-04-14] MEDS: MEMANTINE HCL 5 MG TABLET PO SCH (16:02)
--- NOTE | 2022-04-14 18:37 | NUR ---
RN NOTES DISCHARGE NOTES DISCHARGE PATIENT IN STABLE CONDITION. WITH STABLE VITAL SIGNS. NO PAIN NOTED. NO DISTRESS NOTED. DAUGHTER AT BED SIDE. ALL THE BELONGINGS ACCOUNTED AND SIGNED FOR. IV SITE REMOVED COVERED WITH DRY DRESSING. ID BAND REMOVED. 2 MT TRANSFERRED THE PATIENT AT 1700 TO [facility] IN STABLE CONDITION WITH STABLE VITAL SIGNS.MD AND CHARGE NURSE AWARE OF THE DISCHARGE.
== END 2022-04-14 17:00 | DRG 470 ==
LOC: DS 07:09 → MED 08:56
PROVIDERS: ADMIT Student in an Organized Health Care Education/Training Program; ATTEND Family Medicine
PROC: 0SRC0J9 Replacement of Right Knee Joint with Synthetic Substitute, Cemented, Open Approach (ICD-10-PCS; principal; 2022-04-08)
DX: M17.11 Unilateral primary osteoarthritis, right knee (principal); G93.40 Encephalopathy, unspecified; I10 Essential (primary) hypertension; F03.90 Unspecified dementia, unspecified severity, without behavioral disturbance, psychotic disturbance, mood disturbance, and anxiety; E78.5 Hyperlipidemia, unspecified; F20.9 Schizophrenia, unspecified; F41.0 Panic disorder [episodic paroxysmal anxiety]; Z79.82 Long term (current) use of aspirin; Z79.899 Other long term (current) drug therapy
CPT/HCPCS: 36415; 70450-TC; 71045-TC; 73564-TC; 80048-TC; 80053-TC; 83735-TC; 84100-TC; 85025-TC; 85610-TC; 85730-TC; 86850-TC; 87081-TC; 97116-TC; 97530-TC; 97760-TC; A4217; C1713; C1776; G0378; J0690; J1170; J3010; J3490; J7030; J7040; J7060; J7120; L1830

== ENCOUNTER 2022-06-11 22:57 | Emergency (ER) | payer MEDICARE, OTHER ==
[~2022-06-11] VITALS: Ht 170.2 cm; Wt 65.8 kg
[~2022-06-11 22:57] MED LIST changes: +ASPI-1100 PO; -ASPI-605 PO; +BENZ0.5T43 PO; +BREX3TAB PO; -CARI3CAP PO; -DONE5TAB34 PO; -FISH OIL OMEGA1 EACH PO; -LORA2TAB PO; -LOSA25TA3 PO; +OLAN10TA3 PO; -PYRI50TA15 PO
[2022-06-11 23:15] VITALS: BP 138/72
--- NOTE | 2022-06-11 23:30 | NUR ---
WOUND CARE PROVIDED
--- NOTE | 2022-06-11 23:37 | NUR ---
Patient discharged to home in stable condition. Written and verbal after care instructions given. Patient verbalizes understanding of instruction. Pt ambulatory with a steady gait
== END 2022-06-11 23:38 | disposition home or self-care (01) ==
LOC: ER 23:03
DX: S01.81XA Laceration without foreign body of other part of head, initial encounter (principal); I10 Essential (primary) hypertension; F03.90 Unspecified dementia, unspecified severity, without behavioral disturbance, psychotic disturbance, mood disturbance, and anxiety; F17.200 Nicotine dependence, unspecified, uncomplicated; Z79.82 Long term (current) use of aspirin; Z79.899 Other long term (current) drug therapy; W01.0XXA Fall on same level from slipping, tripping and stumbling without subsequent striking against object, initial encounter; Y93.89 Activity, other specified; Y92.89 Other specified places as the place of occurrence of the external cause; Y99.8 Other external cause status